=== PATIENT | female | born 1980 | race African-American/Black ===

== ENCOUNTER 2017-10-30 14:34 | Emergency (ER) | payer MEDICAID ==
[~2017-10-30] VITALS: Ht 162.6 cm; Wt 77.0 kg
[2017-10-30] MEDS ORDERED: ACETAMINOPHEN 325MG TABLET PO ONE (15:00)
[2017-10-30 15:35] LABS: CLARITY URINE CLEAR (CLEAR); COLOR URINE YELLOW (YELLOW); KETONES URINE NEGATIVE (NEGATIVE); LEUKOCYTE ESTERASE URINE NEGATIVE (NEGATIVE); NITRITE URINE NEGATIVE (NEGATIVE); OCCULT BLOOD URINE NEGATIVE (NEGATIVE); PROTEIN URINE NEGATIVE (NEGATIVE); SPECIFIC GRAVITY URINE 1.022 (1.005-1.030)
[2017-10-30 16:09] LABS: BASOPHILS % 0.4 % (0.0-2.0); EOSINOPHILS % 1.7 % (0.0-5.0); HEMATOCRIT. 35.2 % (36.0-48.0); HEMOGLOBIN. 12.1 g/dL (12.0-16.0); MEAN CORPUSCULAR HEMOGLOBIN 27.2 pg (28.0-32.0); MEAN CORPUSCULAR VOLUME 78.9 fL (81.0-99.0); MEAN PLATELET VOLUME 7.4 fl (7.4-10.4); MONOCYTES % 5.2 % (2.0-8.0); NEUTROPHILS % 59.7 % (40.0-76.0); PLATELET 462 x1000/uL (130-400); RED BLOOD CELL COUNT 4.46 mill/uL (4.2-5.4); RED CELL DISTRIBUTION WIDTH 14.5 % (11.6-14.6)
[2017-10-30 16:13] LABS: CHLORIDE 101 mEq/L (98-107)
[2017-10-30 16:19] LABS: PROTHROMBIN TIME 10.9 sec (9.4-11.6)
[2017-10-30 16:36] LABS: B-HCG QUANTITATIVE 25476 mIU/mL (<3)
[2017-10-30 18:01] VITALS: BP 127/59
== END 2017-10-30 18:49 | disposition home or self-care (01) ==
LOC: ER 14:34
DX: O20.0 Threatened abortion (principal); Z3A.01 Less than 8 weeks gestation of pregnancy
CPT/HCPCS: 36415; 76801; 80053; 81003; 83690; 84702; 85025; 85610; 86850; 86900; 99285

== ENCOUNTER 2018-06-24 13:26 | Emergency (ER) | payer MEDICAID ==
[~2018-06-24] VITALS: Ht 162.6 cm; Wt 83.0 kg
[2018-06-24 18:12] LABS: CLARITY URINE CLEAR (CLEAR); COLOR URINE YELLOW (YELLOW); KETONES URINE 1+ (NEGATIVE); LEUKOCYTE ESTERASE URINE TRACE (NEGATIVE); NITRITE URINE NEGATIVE (NEGATIVE); OCCULT BLOOD URINE NEGATIVE (NEGATIVE); PROTEIN URINE NEGATIVE (NEGATIVE); SPECIFIC GRAVITY URINE 1.015 (1.005-1.030); UROBILINOGEN URINE 0.2 E.U./dL (0.2-1.0)
[2018-06-25 01:53] LABS: HEMATOCRIT 42.1 % (36.0-48.0); HEMOGLOBIN 14.3 g/dL (12.0-16.0); MEAN CORPUSCULAR HEMOGLOBIN 27.5 pg (28.0-32.0); MEAN CORPUSCULAR VOLUME 81.1 fL (81.0-99.0); PLATELET 492 x1000/uL (130-400); RED BLOOD CELL COUNT 5.19 mill/uL (4.2-5.4); RED CELL DISTRIBUTION WIDTH 13.5 % (11.6-14.6)
[2018-06-25 01:57] LABS: CHLORIDE 101 mEq/L (98-107)
[2018-06-25] MEDS ORDERED: POTASSIUM CHLORIDE 20MEQ TABLET SR PO NR (03:00)
[2018-06-25 03:36] VITALS: BP 147/90
== END 2018-06-25 03:38 | disposition home or self-care (01) ==
LOC: ER 13:26
DX: E87.6 Hypokalemia (principal)
CPT/HCPCS: 36415; 81025; 85027; 93005; 99284